=== PATIENT | female | born 1965 | race Caucasian/White ===

== ENCOUNTER 2017-07-10 09:37 | Day surgery (SDC) | payer BC, OTHER ==
[~2017-07-10 09:37] MED LIST: ANCEF/STERILE WATER 2 GM/20 ML 2 GM/20 ML SYRINGE IV SCH; MARCAINE 0.5% INFILTRATI ONE
[2017-07-10] MEDS ORDERED: MORPHINE IV PRN (10:08)
--- NOTE | 2017-07-10 10:09 | Anesthesia Day of Surgery ---
Anesthesia Day of Surgery - Day of Surgery Patient Examined: Yes Patient is NPO: Yes Beta Blockers: No Lee's Test: N/A
--- NOTE | 2017-07-10 10:14 | Anesthesia Consultation ---
Anesthesia Consult and Med Hx Date of service: 07/10/17 - Airway Anesthetic Teeth Evaluation: Good ROM Head & Neck: Adequate Mental/Hyoid Distance: Adequate Mallampati Class: Class II Intubation Access Assessment: Probably Good - Pulmonary Exam CTA: Yes - Cardiac Exam Cardiac Exam: RRR - Pre-Operative Health Status ASA Pre-Surgery Classification: ASA1 Proposed Anesthetic Plan: General - Pulmonary Hx Smoking: No Hx Asthma: No - Cardiovascular System Hx Hypertension: No - Central Nervous System Hx Seizures: No CVA: No - Endocrine Hx Renal Disease: No Hx Liver Disease: No Hx Non-Insulin Dependent Diabetes: No Hx Hypothyroidism: No - Other Systems Hx Obesity: No
[2017-07-10] MEDS ORDERED: PEPCID IV NR (11:00)
[2017-07-10] MEDS ORDERED: NACL 0.9% 1000 ML 1,000 ML IV SCH (11:00)
[2017-07-10] MEDS ORDERED: VERSED IV NR (11:00)
[2017-07-10] MEDS ORDERED: ZOFRAN IV PRN (11:30)
[2017-07-10] MEDS ORDERED: MARCAINE 0.5% 30 ML INFILTRATI ONE (11:36)
[2017-07-10] MEDS ORDERED: ceFAZolin 2 GM in NACL 0.9% 100 ML IV ONE (12:00)
[2017-07-10] MEDS ORDERED: DIPRIVAN 10 MG/ML IV ONE (12:31)
[2017-07-10] MEDS ORDERED: SUBLIMAZE ONE (12:31)
[2017-07-10] MEDS ORDERED: ZEMURON IV ONE (12:52)
[2017-07-10] MEDS ORDERED: BENADRYL ONE (12:52)
[2017-07-10] MEDS ORDERED: DECADRON ONE (12:52)
[2017-07-10] MEDS ORDERED: XYLOCAINE MPF 2% ONE (12:52)
[2017-07-10] MEDS ORDERED: DILAUDID ONE (13:05)
[2017-07-10] MEDS ORDERED: BREVIBLOC IV ONE (13:08)
[2017-07-10] MEDS ORDERED: NEOSTIGMINE ONE (13:14)
[2017-07-10] MEDS ORDERED: ROBINUL ONE ×2 (13:14)
[2017-07-10] MEDS ORDERED: ZOFRAN ONE (13:15)
[2017-07-10] MEDS ORDERED: NORMODYNE IV ONE (13:18)
[2017-07-10] MEDS ORDERED: MARCAINE 0.5% INFILTRATI ONE (13:20)
[2017-07-10] MEDS ORDERED: NACL 0.9% 1000 ML 1,000 ML ONE (13:24)
--- NOTE | 2017-07-10 13:35 | Discharge Summary ---
Short Stay Discharge Plan Activity: other (observe x 4 hrs then october d/c if stable. ice chips today. cl liq in am. solid low fat diet in 48 hrs) Weight Bearing Status: Partial Weight Bearing (no lifting over 5 lbs x 2 wks) Follow up with: SUE DUNBAR III, MD [Primary Care Provider] - 7 Days
[2017-07-10 17:23] VITALS: BP 114/80
--- NOTE | 2017-07-10 19:26 | Operative Report ---
PREOPERATIVE DIAGNOSIS: Rule out biliary disease. POSTOPERATIVE DIAGNOSIS: Rule out biliary disease. PROCEDURE: Laparoscopic cholecystectomy. SURGEON: Carlos Alberto Carcamo MD. FACILITIES AND GROUNDS DIRECTOR: Dr. Rawls. ANESTHESIA: General. ESTIMATED BLOOD LOSS: Minimal. DRAINS: None. COMPLICATIONS: None. PROCEDURE IN DETAIL: The patient was taken to the operating room, prepped and draped in an usual sterile fashion. Veress needle was inserted and CO2 insufflation begun. A 5 mm trocar was then inserted and camera inserted. All other trocars were inserted under direct visualization. Gallbladder was then grasped at the fundus and infundibulum and retracted towards the right subphrenic space. Dissection was then carried out along Calot's triangle. The cystic duct and artery were delineated in their entire course. Both were then doubly clipped and transected. Hook electrocautery was used to dissect the gallbladder from the overlying liver bed. Prior to complete removal, the liver bed was inspected for bleeding and noted to be dry. The cystic duct and artery stumps were once again visualized. The clips were noted to be securely in place with no evidence of bleeding or bile leak. Gallbladder was then completely freed and brought out through the subxiphoid port. This area was inspected for bleeding and noted to be dry. Subxiphoid trocar was then gently reinserted. All other 5 mm trocar removed under direct visualization. No bleeding or oozing noted. Subxiphoid trocar was then used to expel the CO2 and the trocar removed. The fascia at this site was closed with a [id number] 0 Vicryl suture. Skin at all port sites was closed with subcuticular 4-0 Vicryl. A 0.5% Marcaine was infiltrated over the port sites for postoperative pain relief. Steri-Strips, 2 x 2 and Tegaderms applied. The patient tolerated the procedure well and left OR in stable condition. JOB# [id number] SHANIQUA/JAIRO
--- NOTE | 2017-07-10 21:01 | Post Anesthesia Evaluation ---
- Post Anesthesia Evaluation Patient Participated: Yes Airway Patent: Yes Stable Respiratory Function: Yes Nausea/Vomiting: No Temp > 96.8F: Yes Pain Manageable: Yes Adequeate Hydration: Yes Anesthesia Complications: No Block Receding Appropriately: Not Applicable Patient on Ventilator: No
== END 2017-07-10 09:38 | disposition home or self-care (01) ==
LOC: OR 09:37
PROVIDERS: ATTEND Surgery
DX: K81.1 Chronic cholecystitis (principal); Z91.013 Allergy to seafood; Z91.018 Allergy to other foods
CPT/HCPCS: 47562; 88304; J0690; J1100; J1170; J1200; J2250; J2405; J2704; J2710; J3010; J7030

== ENCOUNTER 2017-07-14 04:25 | Emergency (ER) | payer OTHER ==
[2017-07-14 07:22] VITALS: BP 157/106
== END 2017-07-14 08:00 | disposition left against medical advice (07) ==
LOC: ED 04:25
DX: Z53.21 Procedure and treatment not carried out due to patient leaving prior to being seen by health care provider (principal)